=== PATIENT | female | born 1935 | race Caucasian/White ===

== ENCOUNTER → 2017-04-27 | Outpatient (CLI) | payer OTHER, MEDICARE | LOC: FIMAGING 09:41 | PROVIDERS: ATTEND Internal Medicine Endocrinology, Diabetes & Metabolism | DX: E04.2 Nontoxic multinodular goiter (principal) ==

== ENCOUNTER → 2017-07-01 | Outpatient (CLI) | payer OTHER, MEDICARE | LOC: BMCIMAGING 17:06 | PROVIDERS: ATTEND Internal Medicine | DX: R50.9 Fever, unspecified (principal); R06.02 Shortness of breath; R09.02 Hypoxemia ==

== ENCOUNTER → 2018-04-10 | Outpatient (CLI) | payer OTHER, MEDICARE | LOC: BMCIMAGING 11:18 | PROVIDERS: ATTEND Internal Medicine Endocrinology, Diabetes & Metabolism | DX: Z13.820 Encounter for screening for osteoporosis (principal); M85.89 Other specified disorders of bone density and structure, multiple sites; Z78.0 Asymptomatic menopausal state; Z85.3 Personal history of malignant neoplasm of breast; Z87.81 Personal history of (healed) traumatic fracture ==

== ENCOUNTER 2018-04-17 17:44 | Emergency (ER) | payer OTHER, MEDICARE ==
--- NOTE | 2018-04-17 18:07 | EDPHY ---
H & P Time Seen by Provider: 04/17/18 17:51 HPI/ROS: CHIEF COMPLAINT: Right leg bleeding HISTORY OF PRESENT ILLNESS: Patient is an 80-year-old female on [facility] who presents emergency department with right leg bleeding. Patient struck her leg on a car door in December 2017. Since that time she has had no open wound. She has had a good wound clinic today. At the clinic, the doctor removed the scab in cauterized the edges. There is a small superior area of bleeding which required stages. The patient's wound was dressed. She was discharged home. Patient subsequently developed bleeding through the dressing. Patient had an episode of lightheadedness and dizziness but that is resolved. EMS reports an automated hypertensive blood pressure. REVIEW OF SYSTEMS: My complete review of systems is negative except as mentioned in the HPI. Past Medical/Surgical History: Includes Smoking Status: Former smoker Physical Exam: Vitals noted GENERAL: Well-appearing, in no acute distress, alert. HEENT: Eyes normal to inspection, normal pharynx, no signs of dehydration. NECK: No thyromegaly, no lymphadenopathy, supple. RESPIRATORY: Clear to auscultation bilaterally, no rales, rhonchi or wheezing. CVS: Regular rate and rhythm, no rubs, murmurs, or gallops. ABDOMEN: Soft, nontender, nondistended, no organomegaly. BACK: Normal to inspection, no CVA tenderness. SKIN: Normal color, no rash, warm, dry. No pallor. EXTREMITIES: No pedal edema, no calf tenderness. Patient's right lateral leg has a quarter-size oozing wound. There is no arterial bleeding. NEURO/PSYCH: Alert and oriented x3, normal mood and affect, normal motor sensory exam. No obvious cranial nerve deficit. Constitutional: Initial Vital Signs Temperature (C) 36.8 C 04/17/18 17:44 Heart Rate 76 04/17/18 17:44 Respiratory Rate 16 04/17/18 17:44 Blood Pressure 93/56 L 04/17/18 17:44 O2 Sat (%) 92 04/17/18 17:44 O2 Delivery Mode Room Air Allergies/Adverse Reactions: No Known Allergies Allergy (Verified 07/19/16 09:22) Home Medications: Medication Instructions Recorded Atorvastatin Calcium [Lipitor 40 40 mg PO HS 05/21/13 mg (*)] Ramipril [Altace 2.5mg (*)] 2.5 mg PO HS 08/04/14 Furosemide [Lasix 20 MG (*)] 20 mg PO DAILY 04/09/15 Cholecalciferol Vit D3 [Vitamin D3 1,000 units PO DAILY 07/19/16 (*)] Cyanocobalamin [Vitamin B12 (*)] 1,000 mcg PO DAILY 07/19/16 METHIMAZOLE 0.5 gm MC 07/19/16 Methimazole [Tapazole 5MG (*)] 10 mg PO BID 07/19/16 Spironolactone [Aldactone 25 MG 25 mg PO DAILY 07/19/16 (*)] Pantoprazole Sodium [Protonix 40mg 40 mg PO DAILY #30 tab 07/20/16 (*)] Eliquis 04/17/18 Medical Decision Making ED Course/Re-evaluation: In the emergency department I met EMS on arrival. I took report from the paginator. Surgicel was placed on the patient's wound. Patient's wound was dressed. I-STAT hematocrit was ordered. I rechecked the patient on numerous occasions. She was stable throughout her stay. Differential Diagnosis: My differential includes but is not limited to wound injury, wound bleeding, coagulopathy, anemia - Data Points Laboratory Results: 04/17/18 18:04 POC Hgb 13.9 gm/dL gm/dL (12.6-16.3) POC Hct 41 % % (38-47) POC Sodium 137 mEq/L mEq/L (135-145) POC Potassium 4.1 mEq/L mEq/L (3.3-5.0) POC Chloride 102 mEq/L mEq/L (97-110) POC BUN 25 mg/dL H mg/dL (7-23) POC Creatinine 1.0 mg/dL mg/dL (0.6-1.0) POC Glucose 95 mg/dL mg/dL (70-100) Point of Care Test Results: Chemistry 04/17/18 18:04 POC Sodium 137 mEq/L mEq/L (135-145) POC Potassium 4.1 mEq/L mEq/L (3.3-5.0) POC Chloride 102 mEq/L mEq/L (97-110) POC BUN 25 mg/dL H mg/dL (7-23) POC Creatinine 1.0 mg/dL mg/dL (0.6-1.0) POC Glucose 95 mg/dL mg/dL (70-100) ISTAT H&H 04/17/18 18:04 POC Hgb 13.9 gm/dL gm/dL (12.6-16.3) POC Hct 41 % % (38-47) Departure - Departure Disposition: Home, Routine, Self-Care Clinical Impression: Leg wound, right Qualifiers: Encounter type: initial encounter Qualified Code(s): S81.801A - Unspecified open wound, right lower leg, initial encounter Condition: Good Instructions: Acute Wounds (ED) Additional Instructions: Keep your dressing in place. Return to the wound care clinic tomorrow or Tuesday. Return with increasing bleeding or any other concerns. Referrals: Alecia Reese MD [Medical Doctor] - 1-2 days without fail
[2018-04-17 18:41] VITALS: BP 101/59
== END 2018-04-17 19:02 | disposition home or self-care (01) ==
LOC: EDUNIT#
DX: S81.801A Unspecified open wound, right lower leg, initial encounter (principal); Z79.01 Long term (current) use of anticoagulants; Z87.891 Personal history of nicotine dependence; W22.8XXA Striking against or struck by other objects, initial encounter
CPT/HCPCS: 82435-PO; 82565-PO; 82947-PO; 84132-PO; 84295-PO; 84520-PO; 85014-PO

== ENCOUNTER → 2019-04-18 | Outpatient (CLI) | payer OTHER, MEDICARE | LOC: BMCIMAGING 10:14 ==